=== PATIENT | female | born 1955 | race Caucasian/White ===

== ENCOUNTER 2018-11-12 04:42 | Emergency (ER) | payer MEDICARE, OTHER, MEDICAID, SELFPAY ==
[2018-11-12 04:43] VITALS: BP 136/85; PULSE 99; RESP 18; TEMP 36.4; O2SAT 99; BMI 24.1
[2018-11-12] MEDS: 0.9% Normal Saline 1,000 ML 1000 ML IV (05:04)
[2018-11-12] MEDS: Morphine 4 MG/ML Syringe IV (05:04)
[2018-11-12] MEDS: Ondansetron 4 MG/2 ML Vial IV (05:04)
[2018-11-12 05:05] LABS: Absolute Lymphocyte Count 1.35 X10^3/ul (0.83-4.51); Absolute Neutrophil Count 10.8 X10^3/uL (2.0-7.7); Basophil# 0.03 X10^3/uL; Basophil% 0.2 % (0-1); Eosinophil# 0.13 X10^3/uL; Hematocrit 41.7 % (37-47); Hemoglobin 14.1 g/dl (12.0-15.0); Lymphocyte # 1.35 X10^3/ul (4.0); Lymphocyte % 10.3 % (19-41); Mean Corp Hgb Conc 33.8 g/gl (32-36); Mean Corpuscular Hgb 31.1 pg (27.0-32.0); Mean Corpuscular Volume 91.9 fL (81-99); Mean Platelet Vol. 10.4 fl (6.2-12.0); Monocyte# 0.77 X10^3/uL; Monocyte% 5.9 % (0-10); Neutrophil # 10.81 X10^3/uL (2.7-7.7); Neutrophil % 82.4 % (47-70); Platelet Count 205 K/mm3 (150-450); RBC Distribution Width CV 13.9 % (11.6-14.6); RBC Distribution Width SD 45.6 fl (35.1-43.9); Red Blood Count 4.54 M/mm3 (4.2-5.4); White Blood Count 13.1 K/mm3 (4.4-11.0)
[2018-11-12 05:08] LABS: POSITIVE COUNT NO; POSITIVE DIFFERENTIAL NO; POSITIVE MORPHOLOGY NO
[2018-11-12 05:15] VITALS: BP 114/67; PULSE 84; RESP 16; TEMP 36.4; O2SAT 93
[2018-11-12 05:18] LABS: Anion Gap 6 (5-15); BUN 20 mg/dL (7-18); Calcium,Total 9.3 mg/dL (8.5-10.1); Chloride 109 mmol/L (98-107); Creatinine, Serum 0.87 mg/dL (0.55-1.02); EST Glomerular Filtration Rate 70 mL/min (>60); Est Glom Filt Rate - Afr Amer 84 mL/min (>60); Estimated Creatinine Clearance 56.41 ml/min; Glucose 106 mg/dL (74-106); Potassium 4.5 mmol/L (3.5-5.1); Sodium Level 146 mmol/L (136-145)
--- NOTE | 2018-11-12 05:24 | ED.DCSUM_ITS ---
- ER Visit Summary Date of Service: 11/12/18 Chief Complaint: Cough, vomiting and diarrhea History of Present Illness: The patient is a [address] Snyder. She reports that she has had a cough for the past 2 weeks is productive of green, thick sputum without blood. She denies any fever. No chest pain or shortness of breath. Patient reports that approximately an hour ago she woke from sleep and began having vomiting and diarrhea. States that she is vomited 4-5 times. No blood or emesis. She has had 3-4 episodes of diarrhea. No blood in her stools or black tarry stools. She did complains of a diffuse crampy abdominal pain is 5 out of 10 severity. Patient denies sick contacts, but she does work at [employer]. Has not been camping out of the country. No possible bad food exposure. Does not drink well water. No recent antibiotic use. Physical Examination: Vitals: Stable. Afebrile. General: Well-nourished and well-developed. Head: Normocephalic atraumatic. Neck: Supple, no lymphadenopathy. No JVD. Nontender. Cardiovascular: Regular rate and rhythm. No murmurs. Respiratory: No respiratory distress. Clear to auscultation bilaterally. Abdominal: Soft, mild diffuse tenderness to palpation, nondistended, normal bowel sounds. No guarding, rebound, or peritoneal signs. Back: Nontender. Extremities: Nontender, no edema. Skin: Normal color, no rash. Neurologic: Alert and oriented ?3. Cranial nerves II through XII are intact. Normal strength and sensation. Psych: Normal affect. Test Results: CBC is remarkable for a white count of 13.1 with 82 7 neutrophils and 10 lymphocytes. Chem-7 is more for sodium 146, chloride 109, BUN of 20. Chest x-ray shows atelectasis. No infiltrate. Emergency Department Course and Treatment: Patient had an IV placed. She was treated with Zofran and morphine IV. She is resting comfortably. She has had no vomiting or diarrhea while here. Treatment Plan: Patient will be discharged on Zofran. Instructed to follow-up with Dr. Snyder in 1-2 days if not improving. Return to the emergency department for any worsening symptoms. Disposition: To home in improved and stable condition. Impression: 1. URI. 2. Vomiting/diarrhea. This note was generated with [employer] dictation software. It may contain incorrect words, spelling, and punctuation that were not noted in review of the chart pr ior to signing ED Disposition - Plan for ED Patient: Chief Complaint: Cough Instructions: ED Vomiting Diarrhea Nonspecific Ad Prescriptions: Ondansetron [Zofran Odt] 4 mg PO Q8H PRN PRN #10 tablet PRN Reason: Nausea Referrals: Vishal Snyder MD [NON-STAFF] - 1-2 Days if not improving
--- NOTE | 2018-11-12 05:32 | ED.RN ---
I WAS CALLED TO THE PATIENT'S ROOM BY THE DAUGHTER FOR THE PATIENT RAPIDLY MOVING HER MOUTH. SHE WOULD ALSO NOT HARDLY TALK TO ME. VITALS STABLE. DR. SILVER CALLED TO THE ROOM AND HE THOUGHT SHE WAS JUST SHIVERING FROM THE IV FLUIDS SO HE SLOWED THE FLUIDS DOWN.
--- NOTE | 2018-11-12 05:45 | RAD_ITS ---
HISTORY: PRODUCTIVE COUGH WITH THICK SPUTUM FOR 2 WEEKS. STARTED NAUSEA, VOMITING AND DIARRHEA TONIGHT. EXAM: XR Chest 2 Views: COMPARISON: None FINDINGS: Normal heart size. Right basilar linear opacity compatible with subsegmental atelectasis or mild scarring. No pulmonary consolidation. The left lung appears clear. No vascular congestion or pleural effusion. No pneumothorax. RAD/Chest PA and Lateral IMPRESSION: 1. Right basilar mild subsegmental atelectasis or scarring. 2. No CHF or pneumonia identified. at [id number] Reported and signed by: Bishnu Diggs MD Electronically Signed: Bishnu Diggs, at 6:05 EST Tel , Service support ,
[2018-11-12 06:35] VITALS: BP 128/68; PULSE 76; RESP 14; O2SAT 95
[2018-11-12] MEDS: Ondansetron ODT 4 MG Tablet PO (06:35)
== END 2018-11-12 06:38 | disposition home or self-care (01) ==
PROVIDERS: Emergency Provider Emergency Medicine
DX: J06.9 Acute upper respiratory infection, unspecified (principal); R11.2 Nausea with vomiting, unspecified; R19.7 Diarrhea, unspecified; J98.11 Atelectasis
CPT/HCPCS: 71046; 80048; 85025; 96361; 96374; 96375; 99284; J7030; A4216; J2405

== ENCOUNTER → 2019-01-10 10:56 | Outpatient (CLI) | payer MEDICARE, SELFPAY ==
[2019-01-10 10:48] VITALS: BMI 24.9
--- NOTE | 2019-01-10 10:59 | RAD_ITS ---
STUDY: X-RAY - LEFT SHOULDER REASON FOR EXAM: Female, 63 years old. Neck pain. Arm pain. TECHNIQUE: 4 view(s) of the shoulder. COMPARISON: None. FINDINGS: Normal glenohumeral articulation. Normal acromioclavicular joint. Normal acromion. Normal humeral head and visualized proximal humerus. The soft tissue structures are unremarkable. There is no demonstrated fracture. Normal visualized pulmonary apex. RAD/Shoulder min 2 Views IMPRESSION: Normal x-ray examination of the shoulder. Electronically Signed: Ady Alexander MD at 17:50 EST , Service support ,
== END ==
PROVIDERS: Referring Provider Orthopaedic Surgery; Visit Provider Orthopaedic Surgery
DX: M25.512 Pain in left shoulder (principal)
CPT/HCPCS: 73030

== ENCOUNTER → 2019-01-10 10:59 | Outpatient (CLI) | payer MEDICARE, SELFPAY ==
[2019-01-10 10:48] VITALS: BMI 24.9
--- NOTE | 2019-01-10 11:03 | RAD_ITS ---
STUDY: X-RAY - CERVICAL SPINE REASON FOR EXAM: Female, 63 years old. Arm pain. Neck pain. TECHNIQUE: Frontal, lateral, oblique, and odontoid view(s) of the cervical spine were obtained. COMPARISON: None FINDINGS: Normal anterior atlantoaxial articulation. Normal odontoid process. There is straightening of the normal cervical lordosis. Normal vertebral bodies. Disc space narrowing with spurring and mild foraminal narrowing at C5-6. The soft tissue structures are unremarkable. There is no demonstrated fracture of the cervical spine. RAD/Cerv Spine 4 or 5 Views IMPRESSION: Degenerative change at C5-6. Electronically Signed: Ady Alexander MD at 17:49 EST , Service support ,
== END ==
PROVIDERS: Referring Provider Orthopaedic Surgery; Visit Provider Orthopaedic Surgery
DX: R52 Pain, unspecified (principal)
CPT/HCPCS: 72050; 73030

== ENCOUNTER 2019-05-07 23:11 | Emergency (ER) | payer MEDICARE, SELFPAY ==
[2019-01-10 10:48] VITALS: BMI 24.9
[2019-05-07 23:12] VITALS: BP 143/118; PULSE 86; RESP 18; TEMP 37; O2SAT 96; BMI 24.9
--- NOTE | 2019-05-07 23:35 | ED.VISSUMM ---
- ER Visit Summary Date of Service: 05/07/19 Chief Complaint: Splint too tight History of Present Illness: The patient is a 64 F presenting feeling that her left lower extremity splint is too tight. She had bunion surgery yesterday. She is concerned that the splint is too tight. She has been nonweightbearing. She states she is using ice at home. She called her telephone cleaner and was advised to come to the ED for evaluation. Physical Examination: Vitals are stable. Patient is afebrile. Alert no acute distress. HEENT exam is unremarkable. Lungs are clear and equal bilaterally. Heart is regular rate and rhythm. Extremities: Left lower extremity incisions clean dry and intact. No erythema or warmth. Normal pulses. Normal cap refill. Skin is warm and dry. No focal neurologic deficit. Remainder of exam is unremarkable. Emergency Department Course and Treatment: Discussed with Dr. Pereira. Splint was removed. Dressing was replaced. She was put in a walking boot. She is advised weight bearing on heel only. She will follow-up with podiatry tomorrow. Advised return to ED for worsening complaints. Disposition: Discharge home Impression: Postop wound check This note was generated with [employer] dictation software. It may contain incorrect words, spelling, and punctuation that were not noted in review of the chart prior to signing ED Disposition - Plan for ED Patient: Referrals: Vishal Snyder MD [Primary Care Provider] -
--- NOTE | 2019-05-07 23:42 | ED.DEP ---
ED Disposition - Plan for ED Patient: Instructions: POST OP WOUND CHECK, General Referrals: Vishal Snyder MD [Primary Care Provider] - Bishnu Almeida DPM [STAFF PHYSICIAN] -
== END 2019-05-07 23:53 | disposition home or self-care (01) ==
LOC: ED 23:47
PROVIDERS: Emergency Provider Emergency Medicine; Family Provider Family Medicine; PCP Family Medicine
DX: Z48.00 Encounter for change or removal of nonsurgical wound dressing (principal); M19.90 Unspecified osteoarthritis, unspecified site
CPT/HCPCS: 99283

== ENCOUNTER 2019-08-12 07:06 | Emergency (ER) | payer MEDICARE, SELFPAY ==
[2019-08-12 07:07] VITALS: BP 134/59; PULSE 81; RESP 17; TEMP 36.9; O2SAT 98; BMI 25.3
--- NOTE | 2019-08-12 07:14 | ED.VIS.EYE ---
History of Present Illness Chief Complaint: Eye Problem Informant: Patient Location: Left Eye Onset: Days Context: Sudden Onset Timing: Continuous Current Severity: Moderate Maximum Severity: Moderate Worsened by: Nothing Relieved by: Nothing Associated Symptoms - Eyes: Crusting, Drainage, Eyelid swelling, Matting, - - There is no burning, foreign body sensation, itching, pain, photophobia or redness History of injury: No Visual correction: None Narrative: Patient is a 64-year-old woman who presents because of swelling of her left lower lid that started 2 to 3 days ago. The swelling and redness has increased. She states this morning she had crusting, matting of eyelashes and slight discharge. She denies change in vision. She denies double vision. She denies sensitivity to light. There is no history of trauma. There is no history of glaucoma. She denies pain. She denies any facial pain or rash. Prior similar symptoms: No Recent Illness/Hospitalization: No - Past Medical History (1) No significant past medical history Status: Acute Past Medical History - Allergies and Home Meds Allergies/Adverse Reactions: Allergies No Known Allergies Allergy (Verified 08/12/19 07:07) Primary Care Physician: Vishal Snyder MD [Primary Care Provider] - Prior records reviewed: Yes Past Medical History: None Surgical History: noncontributory Lives: With Family Smoking Status: Never smoker Alcohol: None Drugs: None Review of Systems General: Denies: Chills, Fever, Malaise, Sweats Eyes: Denies: Visual changes - bilaterally, Blurred Vision - bilaterally, Diplopia ENT: Denies: Bilateral ear pain, Rhinorrhea, Sore throat Cardiovascular: Denies: Chest pain, Palpitations Respiratory: Denies: Dyspnea, Cough, Dyspnea on exertion Gastrointestinal: Denies: Nausea, Vomiting Musculoskeletal: Denies: Neck pain Skin: Denies: Rash, Wounds Neurological: Denies: Headache, Weakness, Parasthesia Physical Exam Visual Acuity: right: 20/40, bilateral: 20/70 Visual Acuity: Uncorrected Eyelid: Normal inspection, Right eyelid everted, Left eyelid everted, No foreign body, Edema to left eyelid - Left lower lid, Hordeolum left, - - Sponsors that were not marked are all negative Right Conjunctiva/Sclera: Normal inspection, No foreign body, No erythema, - Left Conjunctiva/Sclera: No foreign body, Diffuse focal injection, Exudate, - - The conjunctive on the left is injected. There is no chemosis, ciliary flush, scleral icterus or subconjunctival hemorrhage. Right Cornea: Normal inspection, No foreign body, No abrasion Left Cornea: Normal inspection, No foreign body, No abrasion Extraocular Motion: Normal exam, No pain, No palsy, No nystagmus Right pupil size in mm: 3 mm Left pupil size in mm: 3 mm Anterior chamber: Normal exam, Deep and quiet Posterior Segment: Normal fundoscopic exam, - - There is evidence of peripheral cataracts. Vital Signs/Narrative: Vital Signs Temp Pulse Resp BP Pulse Ox 08/12/19 07:07 98.4 F 81 17 134/59 H 98 General: Well nourished, Well developed. Negative for: Obese Head: Normocephalic, Atraumatic ENT: Moist mucous membranes, No rhinorrhea Neck: Supple, Nontender, No lymphadenopathy, No JVD Skin: Normal color, No rash Neurological: Alert, Oriented x3, Cranial nerves II-XII grossly intact, Normal Strength, Normal Sensation, Normal Gait Psychological: Normal affect, Normal Mood Diagnostic/Tx/Re-eval There was no diagnostic testing. Diagnosis is not indicated. Patient has a hordeolum with evidence of conjunctivitis. Plan is to treat with ophthalmic antibiotic and refer to Dr. Osorio. - Medical Decision Making Patient's history and physical findings consistent with a hordeolum with conjunctivitis. Will treat with anti-biotic and refer to ophthalmology. ED Disposition - Plan for ED Patient: Disposition: Home or Assisted Living Diagnosis: Hordeolum externum left lower eyelid Instructions: When Your Child Has a Stye Prescriptions: Ciprofloxacin 0.3% [Ciloxan] 1 drp LEFT EYE Q4 #1 bottle Transmission Status: Pending to [facility]/pharmacy #[id number] Referrals: Vishal Snyder MD [Primary Care Provider] - Mitchell Osorio MD [STAFF PHYSICIAN] - 3-5 Days if not improving Additional Instructions: Your prescription was electronically transmitted to [facility] pharmacy located on back [facility]. Your home-going instructions are for child since there are no adult home-going instructions.
== END 2019-08-12 07:33 | disposition home or self-care (01) ==
PROVIDERS: Emergency Provider Emergency Medicine; Family Provider Family Medicine; PCP Family Medicine
DX: H00.015 Hordeolum externum left lower eyelid (principal); H10.9 Unspecified conjunctivitis
CPT/HCPCS: 99283

== ENCOUNTER 2019-10-13 09:15 | Emergency (ER) | payer MEDICARE, SELFPAY ==
[2019-10-13 09:16] VITALS: BP 156/81; PULSE 70; RESP 15; TEMP 36.4; O2SAT 98; BMI 25.6
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
[2019-10-13 11:03] VITALS: BP 121/66; PULSE 74; RESP 18; O2SAT 99
== END 2019-10-13 11:04 | disposition home or self-care (01) ==
PROVIDERS: Emergency Provider Physician Assistant Medical; Family Provider Family Medicine; PCP Family Medicine
DX: S06.0X0A Concussion without loss of consciousness, initial encounter (principal); S16.1XXA Strain of muscle, fascia and tendon at neck level, initial encounter; S20.219A Contusion of unspecified front wall of thorax, initial encounter; V47.0XXA Car driver injured in collision with fixed or stationary object in nontraffic accident, initial encounter; Y93.9 Activity, unspecified; Y92.410 Unspecified street and highway as the place of occurrence of the external cause; Y99.9 Unspecified external cause status; M81.0 Age-related osteoporosis without current pathological fracture
CPT/HCPCS: 70450; 71046; 72125; 99284